=== PATIENT | female | born 1995 | race Hispanic/Latino ===

== ENCOUNTER 2025-04-08 12:03 | Emergency (ER) | payer OTHER ==
[~2025-04-08] VITALS: Ht 165.1 cm; Wt 74.8 kg
[2025-04-08] MEDS ORDERED: KETO10TA2 PO (15:21)
[2025-04-08] MEDS ORDERED: CYCL10TA16 PO (15:21)
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
[2025-04-08 15:44] VITALS: BP 128/67; PULSE 62; RESP 14; TEMP 97.7; O2SAT 100
== END 2025-04-08 15:45 | disposition home or self-care (01) ==
LOC: EDH 12:03
DX: S16.1XXA Strain of muscle, fascia and tendon at neck level, initial encounter (principal); Z90.49 Acquired absence of other specified parts of digestive tract; Z98.51 Tubal ligation status; V89.2XXA Person injured in unspecified motor-vehicle accident, traffic, initial encounter; Y93.I9 Activity, other involving external motion; Y92.89 Other specified places as the place of occurrence of the external cause; Y99.8 Other external cause status
CPT/HCPCS: 72040; 99283